=== PATIENT | male | born 1955 | race Caucasian/White ===

== ENCOUNTER 2019-09-02 11:16 | Inpatient (IN) | payer OTHER ==
[2019-09-02 13:01] VITALS: BMI 26.4
--- NOTE | 2019-09-02 14:30 | HP ---
Screened but not Admitted - Documentation of Visit Screened but not Admitted: Yes Level of Care Recommended at this Time: ER Evaluation/Care Additional Information/Explanation: this 63 years old male with alcohol rependence,seizure,. head injury and face injury 2 days ago on . ecchymosis with swelling of left face,nose,. ecchymosis of right upper arm. bp 143/86,p83,r16,t98.0. marcelino 0.000. history of asthma. impression chonic alcoholism. seizure. head injury. facial and nose injury r/o fx. treatment to er at [facility] for evaluation and medically clearance. endorsed to Dr Girish Song. [facility].
--- NOTE | 2019-09-02 22:06 | HP ---
CIWA Score Nausea/Vomitin Muscle Tremors: 3 Anxiety: 2 Agitation: 2 Paroxysmal Sweats: 2 Orientation: 0-Oriented Tacttile Disturbances: 2-Mild Itch/Numbness/Burn Auditory Disturbances: 2-Mild Harshness/Frighten Visual Disturbances: 3-Moderate Sensitivity Headache: 2-Mild CIWA-Ar Total Score: 20 - Admission Criteria OASAS Guidelines: Admission for Medically Managed Detox: Requires at least one of the followin. CIWA greater than 12 2. Seizures within the past 24 hours 3. Delirium tremens within the past 24 hours 4. Hallucinations within the past 24 hours 5. Acute intervention needed for co occurring medical disorder 6. Acute intervention needed for co occurring psychiatric disorder 7. Severe withdrawal that cannot be handled at a lower level of care (continued vomiting, continued diarrhea, abnormal vital signs) requiring intravenous medication and/or fluids 8. Admission ROS BHS - HPI Chief Complaint: DEPENDENT ON ETOH ONLY Allergies/Adverse Reactions: Allergies Allergy/AdvReac Type Severity Reaction Status Date / Time No Known Allergies Allergy Verified 09/02/19 15:25 History of Present Illness: THE PT. WAS SENT FROM THE ER FOR ADMISSION TO THE DETOX UNIT HE WAS MEDICALLY CLEARED BY THE ER-MD Exam Limitations: No Limitations - Ebola screening Have you traveled outside of the country in the last 21 days: No Have you had contact with anyone from an Ebola affected area: No Have you been sick,other than usual withdrawal symptoms: No Do you have a fever: No - Review of Systems Constitutional: See HPI, Malaise, Weakness EENT: reports: See HPI Respiratory: reports: See HPI, SOB with Exertion, Wheezing Cardiac: reports: See HPI, Syncope GI: reports: See HPI, Nausea, Abdominal cramping : reports: See HPI Musculoskeletal: reports: See HPI, Joint Pain, Muscle Pain, Muscle Weakness, Neck Pain, Joint Stiffness Integumentary: reports: See HPI, Bruising, Flushing, Lesions, Sweating Neuro: reports: See HPI, Headache, Tremors, Weakness Endocrine: reports: See HPI Hematology: reports: See HPI Psychiatric: reports: Judgement Intact, Orientated x3, Anxious, Depressed Patient History - Patient Medical History Hx Asthma: Yes Hx Seizures: Yes (WITHDRAWAL SEIZURES - LAST EPISODE 2 DAYS AGO) Hx Human Immunodeficiency Virus (HIV): No Hx Hepatitis C: No Hx Depression: No Hx Suicide Attempt: No Hx Bipolar Disorder: No Other Medical History: H/O FELL DOWN 2 DAYS AGO AND SUSTAINED INJURIES TO THE FACE W/U WAS NEGATIV - Patient Surgical History Past Surgical History: Yes Hx Orthopedic Surgery: Yes (ON CERVICAL SPINE - SEVERAL YRS. AGO) - Smoking Cessation Smoking history: Current every day smoker Have you smoked in the past 12 months: Yes Aproximately how many cigarettes per day: 4 Hx Chewing Tobacco Use: No Initiated information on smoking cessation: Yes 'Breaking Loose' booklet given: 09/02/19 - Substance & Tx. History Hx Alcohol Use: Yes Hx Substance Use: No Substance Use Type: Alcohol Hx Substance Use Treatment: Yes - Substances abused Alcohol Substance route: Oral Frequency: Daily Amount used: 1 pint of vodka Age of first use: 17 Date of last use: 09/01/19 Admission Physical Exam S - Vital Signs Vital Signs: Vital Signs - 24 hr 09/02/19 12:54 Temperature 98.0 F Pulse Rate 83 Respiratory 16 Rate Blood Pressure 143/86 - Physical General Appearance: Yes: No Apparent Distress, Nourished, Appropriately Dressed , Tremorous, Sweating, Anxious HEENTM: Yes: Hearing grossly Normal, Normocephalic, Normal Voice, MELANIE, Pharynx Normal Respiratory: Yes: Chest Non-Tender, No Respiratory Distress, No Accessory Muscle Use, Wheezing Neck: Yes: No masses,lesions,Nodules, Supple, Trachea in good position Breast: Yes: Breast Exam Deferred, Axillae without masses Cardiology: Yes: Regular Rhythm, Regular Rate, S1, S2 Abdominal: Yes: Normal Bowel Sounds, Non Tender, Soft, Protuberent Back: Yes: Normal Inspection, Decreased Range of Motion Musculoskeletal: Yes: Gait Steady, Joint Stiffness, Muscle Pain, Muscle weakness Extremities: Yes: Normal Capillary Refill, Tremors Neurological: Yes: 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 NML intact, Fully Oriented, Alert, Motor Strength 5/5, Normal Response, Depressed Affect Integumentary: Yes: Normal Color, Warm, Moist Lymphatic: Yes: Within Normal Limits - Diagnostic (1) EtOH dependence Current Visit: Yes Status: Acute (2) Asthma Current Visit: Yes Status: Chronic Qualifiers: Asthma severity: unspecified severity Asthma complication type: uncomplicated (3) Fall Current Visit: No Status: Resolved (4) Right shoulder pain Current Visit: No Status: Acute Qualifiers: Chronicity: acute Qualified Code(s): M25.511 - Pain in right shoulder Cleared for Admission [facility] - Detox or Rehab [facility] Level of Care: Medically Supervised Detox Regimen/Protocol: Librium Breathalyzer - Breathalyzer Breathalyzer: 0 Urine Drug Screen - Test Device Lot number: [id number] Expiration date: 05/29/20 - Control Is test valid?: Yes - Results Drug screen NEGATIVE: No Urine drug screen results: BZO-Benzodiazepines Inpatient Rehab Admission - Rehab Decision to Admit Inpatient rehab admission?: No
[2019-09-02] MEDS ORDERED: MAGNESIUM HYDROX 2400MG/30ML ORAL SUSPENSION 30 ML CUP PO PRN (22:12)
[2019-09-02] MEDS ORDERED: IBUPROFEN 400 MG TABLET (FP) PO PRN (22:12)
[2019-09-02] MEDS ORDERED: MAGNESIUM CITRATE 300 ML BOTTLE PO PRN (22:12)
[2019-09-02] MEDS ORDERED: METHOCARBAMOL 500 MG TABLET PO PRN (22:12)
[2019-09-02] MEDS ORDERED: MELATONIN 5 MG TABLETS PO PRN (22:12)
[2019-09-02] MEDS ORDERED: MENTHOL/PHENOL 1 EACH UD MM PRN (22:12)
[2019-09-02] MEDS ORDERED: MAG HYDROX/AL HYDROX/SIMETH 30 ML UNIT-DOSE CUP PO PRN (22:12)
[2019-09-02] MEDS ORDERED: NICOTINE POLACRILEX 2 MG GUM BUC PRN (22:12)
[2019-09-02] MEDS ORDERED: ACETAMINOPHEN 325 MG TABLET (FP) PO PRN ×2 (22:12)
[2019-09-02] MEDS ORDERED: BISMUTH SUBSALICYLATE 524 MG/30 ML UD PO PRN (22:12)
[2019-09-02] MEDS ORDERED: hydrOXYzine PAMOATE 25 MG CAPSULE (FP) PO PRN (22:12)
[2019-09-02] MEDS ORDERED: chlordiazePOXIDE HCL 25 MG CAPSULE PO PRN (22:14)
[2019-09-02] MEDS ORDERED: chlordiazePOXIDE HCL 25 MG CAPSULE PO ONE (22:14)
[2019-09-02] MEDS ORDERED: ALBUTEROL SO4 8 GM HFA INHALER IH PRN (22:15)
[2019-09-02] MEDS: chlordiazePOXIDE HCL 25 MG CAPSULE PO SCH (23:45)
[2019-09-02] MEDS: BACITRACIN 15 GM TUBE TOPICAL OINTMENT TP SCH (23:55)
[2019-09-03] MEDS: chlordiazePOXIDE HCL 25 MG CAPSULE PO SCH ×4 (06:27→23:33)
[2019-09-03] MEDS: BACITRACIN 15 GM TUBE TOPICAL OINTMENT TP SCH ×3 (06:27→23:33)
[2019-09-03] MEDS: PRENATAL VITAMINS W/ FOLIC ACID TABLET (FP) PO SCH (10:24)
[2019-09-03 13:36] LABS: HEMATOCRIT 41.8 % (35.4-49); HEMOGLOBIN 13.8 GM/dL (11.7-16.9); MCH 32.8 pg (25.7-33.7); MEAN CELL VOLUME 99.4 fl (80-96); MEAN PLT VOLUME 8.1 fl (7.5-11.1); PLATELET COUNT 331 K/MM3 (134-434); WHITE BLOOD COUNT 4.9 K/mm3 (4.0-10.0)
[2019-09-03 14:02] LABS: ALBUMIN 3.4 g/dl (3.4-5.0); BLOOD UREA NITROGEN 10.1 mg/dL (7-18); CALCIUM 8.9 mg/dL (8.5-10.1); CREATININE 0.8 mg/dL (0.55-1.3); POTASSIUM 4.2 mmol/L (3.5-5.1); TOT PROT 6.1 g/dl (6.4-8.2)
--- NOTE | 2019-09-03 14:55 | PN ---
S CIWA - CIWA Score Nausea/Vomitin-Mild Nausea/No Vomiting Muscle Tremors: 4-Moderate,w/Arms Extend Anxiety: 3 Agitation: 3 Paroxysmal Sweats: 3 Orientation: 0-Oriented Tacttile Disturbances: 0-None Auditory Disturbances: 0-None Visual Disturbances: 0-None Headache: 0-None Present CIWA-Ar Total Score: 14 S Progress Note (SOAP) Subjective: Feels ok, medication working ok Objective: 09/03/19 14:51 Last Vital Signs Temp Pulse Resp BP Pulse Ox 97.9 F 71 18 135/90 09/03/19 13:57 09/03/19 13:57 09/03/19 13:57 09/03/19 13:57 Elevated b/p: denies htn Laboratory Tests 09/03/19 09/03/19 07:30 07:30 WBC 4.9 RBC 4.20 Hgb 13.8 Hct 41.8 MCV 99.4 H MCH 32.8 MCHC 33.0 RDW 15.0 Plt Count 331 MPV 8.1 Sodium 143 Potassium 4.2 Chloride 107 Carbon Dioxide 30 Anion Gap 6 L BUN 10.1 Creatinine 0.8 Est GFR (CKD-EPI)AfAm 110.19 Est GFR (CKD-EPI)NonAf 95.07 Random Glucose 124 H Calcium 8.9 Total Bilirubin 1.0 AST 28 ALT 56 Alkaline Phosphatase 145 H Total Protein 6.1 L Albumin 3.4 Labs reviewed: serum glucose 124 (high), alk phos 145 (high) Assessment: 09/03/19 14:53 Withdrawal sxs Noted with HTN, hyperglycemia and elevated alkaline phosphatase Plan: Continue detox Encouraged PO water intake Elevated b/p: denies HTN, most likely withdrawal related, start clonidine prn Hyperglycemia: denies dm, send fasting glucose and A1c Elevated alk phos: repeat serum alk phos
[2019-09-03] MEDS ORDERED: cloNIDine HCL 0.1 MG TABLET PO PRN (14:57)
[2019-09-03] MEDS: THIAMINE HCL 100 MG TABLET (FP) PO SCH (23:34)
[2019-09-04] MEDS: chlordiazePOXIDE HCL 25 MG CAPSULE PO SCH ×4 (06:23→22:18)
[2019-09-04] MEDS: BACITRACIN 15 GM TUBE TOPICAL OINTMENT TP SCH ×3 (06:24→22:53)
--- NOTE | 2019-09-04 10:36 | PN ---
S CIWA - CIWA Score Nausea/Vomitin Muscle Tremors: 2 Anxiety: 2 Agitation: 2 Paroxysmal Sweats: 1-Minimal Palms Moist Orientation: 0-Oriented Tacttile Disturbances: 1-Very Mild Itch/Numbness Auditory Disturbances: 0-None Visual Disturbances: 0-None Headache: 1-Very Mild CIWA-Ar Total Score: 11 S Progress Note (SOAP) Subjective: alert,irritable,anxious,interrupted sleep,tremor,pain in the right shoulder with limitation on abduction,escchymosis of right upper arm Objective: 09/04/19 10:35 Vital Signs Temperature 97.7 F 09/04/19 09:17 Pulse Rate 90 09/04/19 09:17 Respiratory Rate 18 09/04/19 09:17 Blood Pressure 139/88 09/04/19 09:17 O2 Sat by Pulse Oximetry (%) Laboratory Last Values WBC 4.9 K/mm3 (4.0-10.0) 09/03/19 07:30 RBC 4.20 M/mm3 (4.00-5.60) 09/03/19 07:30 Hgb 13.8 GM/dL (11.7-16.9) 09/03/19 07:30 Hct 41.8 % (35.4-49) 09/03/19 07:30 MCV 99.4 fl (80-96) H 09/03/19 07:30 MCH 32.8 pg (25.7-33.7) 09/03/19 07:30 MCHC 33.0 g/dl (32.0-35.9) 09/03/19 07:30 RDW 15.0 % (11.9-15.9) 09/03/19 07:30 Plt Count 331 K/MM3 (134-434) 09/03/19 07:30 MPV 8.1 fl (7.5-11.1) 09/03/19 07:30 Sodium 143 mmol/L (136-145) 09/03/19 07:30 Potassium 4.2 mmol/L (3.5-5.1) 09/03/19 07:30 Chloride 107 mmol/L (98-107) 09/03/19 07:30 Carbon Dioxide 30 mmol/L (21-32) 09/03/19 07:30 Anion Gap 6 MMOL/L (8-16) L 09/03/19 07:30 BUN 10.1 mg/dL (7-18) 09/03/19 07:30 Creatinine 0.8 mg/dL (0.55-1.3) 09/03/19 07:30 Est GFR (CKD-EPI)AfAm 110.19 09/03/19 07:30 Est GFR (CKD-EPI)NonAf 95.07 09/03/19 07:30 Random Glucose 124 mg/dL (74-106) H 09/03/19 07:30 Calcium 8.9 mg/dL (8.5-10.1) 09/03/19 07:30 Total Bilirubin 1.0 mg/dL (0.2-1) 09/03/19 07:30 AST 28 U/L (15-37) 09/03/19 07:30 ALT 56 U/L (13-61) 09/03/19 07:30 Alkaline Phosphatase 145 U/L (45-117) H 09/03/19 07:30 Total Protein 6.1 g/dl (6.4-8.2) L 09/03/19 07:30 Albumin 3.4 g/dl (3.4-5.0) 09/03/19 07:30 RPR Titer Nonreactive (NONREACTIVE) 09/03/19 07:30 Assessment: 09/04/19 10:36 withdrawal symptom Plan: continue detox librium regimen,porgressive abduction exercise of right shoulder, repeat cmp,fasting glucose in am,to see own medical provider and possible orthopedic evaluation after discharge ,patient understood
[2019-09-04] MEDS: PRENATAL VITAMINS W/ FOLIC ACID TABLET (FP) PO SCH (11:12)
[2019-09-04] MEDS: THIAMINE HCL 100 MG TABLET (FP) PO SCH (22:19)
[2019-09-05] MEDS ORDERED: chlordiazePOXIDE HCL 10 MG CAPSULE PO PRN
[2019-09-05] MEDS: chlordiazePOXIDE HCL 10 MG CAPSULE PO SCH ×4 (06:22→22:15)
[2019-09-05] MEDS: BACITRACIN 15 GM TUBE TOPICAL OINTMENT TP SCH ×3 (07:08→22:15)
--- NOTE | 2019-09-05 08:45 | PN ---
S CIWA - CIWA Score Nausea/Vomitin-Mild Nausea/No Vomiting Muscle Tremors: 2 Anxiety: 1-Mildly Anxious Agitation: 0-Normal Activity Paroxysmal Sweats: No Perspiration Orientation: 0-Oriented Tacttile Disturbances: 0-None Auditory Disturbances: 0-None Visual Disturbances: 0-None Headache: 1-Very Mild CIWA-Ar Total Score: 5 BHS Progress Note (SOAP) Subjective: pt without complaints- says he is doing well- going back to snf at discharge - O: Vital Signs - 24 hr 09/04/19 09/04/19 09/04/19 09:17 17:17 21:10 Temperature 97.7 F 97.5 F L 97.9 F Pulse Rate 90 76 79 Respiratory 18 18 18 Rate Blood Pressure 139/88 145/85 142/67 09/05/19 09/05/19 09/05/19 00:30 03:30 06:19 Temperature 97 F L Pulse Rate 66 Respiratory 18 18 18 Rate Blood Pressure 139/87 Laboratory Tests 09/03/19 09/03/19 09/03/19 07:30 07:30 07:30 WBC 4.9 RBC 4.20 Hgb 13.8 Hct 41.8 MCV 99.4 H MCH 32.8 MCHC 33.0 RDW 15.0 Plt Count 331 MPV 8.1 Sodium 143 Potassium 4.2 Chloride 107 Carbon Dioxide 30 Anion Gap 6 L BUN 10.1 Creatinine 0.8 Est GFR (CKD-EPI)AfAm 110.19 Est GFR (CKD-EPI)NonAf 95.07 Random Glucose 124 H Calcium 8.9 Total Bilirubin 1.0 AST 28 ALT 56 Alkaline Phosphatase 145 H Total Protein 6.1 L Albumin 3.4 RPR Titer Nonreactive a/p: AUD- continue detox, d/c 09/07. Pt to discuss with counselor re snf vs rehab d/c planning
[2019-09-05] MEDS: PRENATAL VITAMINS W/ FOLIC ACID TABLET (FP) PO SCH (10:09)
[2019-09-05 11:10] LABS: ALBUMIN 3.1 g/dl (3.4-5.0); BILIRUBIN,TOTAL 0.5 mg/dL (0.2-1); BLOOD UREA NITROGEN 9.3 mg/dL (7-18); CALCIUM 8.8 mg/dL (8.5-10.1); CREATININE 0.7 mg/dL (0.55-1.3); POTASSIUM 4.6 mmol/L (3.5-5.1); TOT PROT 5.7 g/dl (6.4-8.2)
[2019-09-05] MEDS: THIAMINE HCL 100 MG TABLET (FP) PO SCH (22:15)
[2019-09-06] MEDS: chlordiazePOXIDE HCL 10 MG CAPSULE PO SCH ×2 (05:25→17:32)
[2019-09-06] MEDS: BACITRACIN 15 GM TUBE TOPICAL OINTMENT TP SCH ×3 (05:43→22:08)
--- NOTE | 2019-09-06 10:21 | PN ---
S CIWA - CIWA Score Nausea/Vomitin-Mild Nausea/No Vomiting Muscle Tremors: 1-None Visible, but [place] Anxiety: 1-Mildly Anxious Agitation: 1-Slight > Activity Paroxysmal Sweats: No Perspiration Orientation: 0-Oriented Tacttile Disturbances: 0-None Auditory Disturbances: 0-None Visual Disturbances: 1-Very Mild Sensitivity Headache: 1-Very Mild CIWA-Ar Total Score: 6 BHS Progress Note (SOAP) Subjective: alert,irritable,anxious,interrupted sleep,pain in the body and right shoulder Objective: 09/06/19 10:20 Vital Signs Temperature 97.5 F L 09/06/19 09:11 Pulse Rate 77 09/06/19 09:11 Respiratory Rate 18 09/06/19 09:11 Blood Pressure 141/86 09/06/19 09:11 O2 Sat by Pulse Oximetry (%) Assessment: 09/06/19 10:20 withdrawal symptom Plan: continue detox librium regimen,discharge in am
[2019-09-06] MEDS: PRENATAL VITAMINS W/ FOLIC ACID TABLET (FP) PO SCH (10:23)
[2019-09-06] MEDS: THIAMINE HCL 100 MG TABLET (FP) PO SCH (22:07)
[2019-09-07] MEDS ORDERED: chlordiazePOXIDE HCL 10 MG CAPSULE PO ONE (05:00)
[2019-09-07] MEDS: BACITRACIN 15 GM TUBE TOPICAL OINTMENT TP SCH (06:01)
--- NOTE | 2019-09-07 08:30 | DS ---
[facility] Detox Discharge Summary Admission Date: 09/02/19 Discharge Date: 09/07/19 - History Present History: Alcohol Dependence - Physical Exam Results Vital Signs: Vital Signs Temperature 97.5 F L 09/07/19 05:00 Pulse Rate 66 09/07/19 05:00 Respiratory Rate 18 09/07/19 05:00 Blood Pressure 118/67 09/07/19 05:00 O2 Sat by Pulse Oximetry (%) Pertinent Admission Physical Exam Findings: Vital Signs Temperature 97.5 F L 09/07/19 05:00 Pulse Rate 66 09/07/19 05:00 Respiratory Rate 18 09/07/19 05:00 Blood Pressure 118/67 09/07/19 05:00 O2 Sat by Pulse Oximetry (%) Laboratory Tests 09/03/19 09/03/19 09/03/19 07:30 07:30 07:30 WBC 4.9 RBC 4.20 Hgb 13.8 Hct 41.8 MCV 99.4 H MCH 32.8 MCHC 33.0 RDW 15.0 Plt Count 331 MPV 8.1 Sodium 143 Potassium 4.2 Chloride 107 Carbon Dioxide 30 Anion Gap 6 L BUN 10.1 Creatinine 0.8 Est GFR (CKD-EPI)AfAm 110.19 Est GFR (CKD-EPI)NonAf 95.07 Random Glucose 124 H Fasting Glucose Calcium 8.9 Total Bilirubin 1.0 AST 28 ALT 56 Alkaline Phosphatase 145 H Total Protein 6.1 L Albumin 3.4 RPR Titer Nonreactive 09/05/19 08:00 WBC RBC Hgb Hct MCV MCH MCHC RDW Plt Count MPV Sodium 142 Potassium 4.6 Chloride 108 H Carbon Dioxide 29 Anion Gap 5 L BUN 9.3 Creatinine 0.7 Est GFR (CKD-EPI)AfAm 116.40 Est GFR (CKD-EPI)NonAf 100.43 Random Glucose 99 Fasting Glucose 99 Calcium 8.8 Total Bilirubin 0.5 AST 40 H ALT 67 H Alkaline Phosphatase 141 H Total Protein 5.7 L Albumin 3.1 L RPR Titer aaox3 ambulating no acute distress - Treatment Hospital Course: Detox Protocol Followed, Detoxed Safely, Responded well, Discharged Condition Good, Rehab Referral Accepted Patient has Accepted a Rehab Referral to: pt declined rehab; referral provided - Medication Discharge Medications: Ambulatory Orders Albuterol Sulfate Inhaler - [Ventolin Hfa Inhaler -] 2 inh PO Q6H 09/02/19 - Diagnosis (1) EtOH dependence Current Visit: Yes Status: Chronic Qualifiers: Substance use status: uncomplicated Qualified Code(s): F10.20 - Alcohol dependence, uncomplicated (2) Asthma Current Visit: Yes Status: Chronic Qualifiers: Asthma severity: unspecified severity Asthma complication type: uncomplicated (3) Right shoulder pain Current Visit: No Status: Acute Qualifiers: Chronicity: acute Qualified Code(s): M25.511 - Pain in right shoulder - AMA Did Patient Leave Against Medical Advice: No
[2019-09-07 09:16] VITALS: BP 133/77; PULSE 84; TEMP 97.9
[2019-09-07] MEDS: PRENATAL VITAMINS W/ FOLIC ACID TABLET (FP) PO SCH (10:22)
== END 2019-09-07 11:05 | disposition other institution (70) | DRG 775 ==
LOC: YASAS 11:16 → Y6N 22:42
PROVIDERS: ADMIT Allergy & Immunology; ATTEND Allergy & Immunology
PROC: HZ2ZZZZ Detoxification Services for Substance Abuse Treatment (ICD-10-PCS; principal; 2019-09-02)
DX: F10.230 Alcohol dependence with withdrawal, uncomplicated (principal); F17.210 Nicotine dependence, cigarettes, uncomplicated; G40.509 Epileptic seizures related to external causes, not intractable, without status epilepticus; J45.909 Unspecified asthma, uncomplicated; R73.9 Hyperglycemia, unspecified; R74.8 Abnormal levels of other serum enzymes; R03.0 Elevated blood-pressure reading, without diagnosis of hypertension; M25.511 Pain in right shoulder; S09.93XA Unspecified injury of face, initial encounter; W19.XXXA Unspecified fall, initial encounter; Y93.89 Activity, other specified; Y92.89 Other specified places as the place of occurrence of the external cause; Y99.8 Other external cause status
CPT/HCPCS: 36415; 80053; 82947; 85027; 86593

== ENCOUNTER 2019-09-02 15:09 | Emergency (ER) | payer OTHER ==
[2019-09-02 15:25] VITALS: TEMP 98.1; BMI 29.0
--- NOTE | 2019-09-02 17:41 | PDOC ---
History of Present Illness - General Chief Complaint: Injury Stated Complaint: FALL Time Seen by Provider: 09/02/19 16:44 History Source: Patient Exam Limitations: No Limitations - History of Present Illness Initial Comments: 63 y/o M, pmh of alcohol intoxication, presents to the ED from [facility] s/p fall. As per pt he had fallen 3 days ago while intoxicated in [place] and was checked out at [facility] in [place]. He was then sent to a detox facility in [place]() who then sent him to [facility] for detox. He also reports a second fall yesterday, during which he sustained some superficial abrasions and injuries to his body. He currently c/o of right rib pain and right shoulder pain with lack of ROM. Denies f/c/n/v/d/sob, abdominal pain. 09/02/19 17:42 09/02/19 17:49 Associated Symptoms: reports: denies symptoms, chest pain (right lateral chest ) . denies: cough, diaphoresis, headaches, nausea/vomiting, shortness of breath Past History - Travel Traveled outside of the country in the last 30 days: No Close contact w/someone who was outside of country & ill: No - Past Medical History Allergies/Adverse Reactions: Allergies Allergy/AdvReac Type Severity Reaction Status Date / Time No Known Allergies Allergy Verified 09/02/19 15:25 Home Medications: Ambulatory Orders Albuterol Sulfate Inhaler - [Ventolin Hfa Inhaler -] 2 inh PO Q6H 09/02/19 COPD: No - Immunization History Immunization Up to Date: No - Psycho Social/Smoking Cessation Hx Smoking History: Current every day smoker Number of Cigarettes Smoked Daily: 4 Information on smoking cessation initiated: No Hx Alcohol Use: Yes Drug/Substance Use Hx: No Review of Systems - Review of Systems Able to Perform ROS?: Yes Is the patient limited French proficient: No Constitutional: Yes: Symptoms Reported, Weight Stable. No: Chills, Diaphoresis , Fever HEENTM: Yes: Symptoms Reported. No: Eye Pain, Blurred Vision Respiratory: Yes: Symptoms reported. No: Cough, Shortness of Breath, Wheezing, Productive cough Cardiac (ROS): Yes: Symptoms Reported, Chest Pain (right lateral chest pain). No: Chest Tightness ABD/GI: No: Abdominal Distended, Diarrhea, Nausea, Vomiting Neurological: Yes: Symptoms reported. No: Headache, Numbness *Physical Exam - Vital Signs Last Vital Signs Temp Pulse Resp BP Pulse Ox 98.1 F 78 16 148/60 96 09/02/19 15:20 09/02/19 15:20 09/02/19 15:20 09/02/19 15:20 09/02/19 15:20 - Physical Exam General Appearance: Yes: Nourished, Appropriately Dressed HEENT: positive: EOMI, MELANIE, Normal ENT Inspection, Pharynx Normal, Orbits ( left facial abrasion and swelling and ecchymosis and nose erythema) Neck: positive: Trachea midline, Normal Thyroid, Supple Respiratory/Chest: positive: Chest Tender (right rib pain and bruising ), Normal Breath Sounds, Crackles (mild crackles on the right lower lobe) Cardiovascular: positive: Regular Rhythm, Regular Rate, S1, S2. negative: Murmur, Gallop/S3, Gallop/S4 Vascular Pulses: Dorsalis-Pedis (R): 2+, Doralis-Pedis (L): 2+ Gastrointestinal/Abdominal: positive: Normal Bowel Sounds, Soft. 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 As per pt he had fallen 3 days ago while intoxicated in [place] and was checked out at [facility] in [place]. #s/p Fall 2/2 to intoxication r/o pneumothorax from rib fx on the right side wounds present on the left side of the face and nose- superficial abrasions Right rib pain and ecchymosis- Bedside US shows likely evidence of 4th rib fx Right shoulder and arm ecchymotic and no ROM CT chest and CT a/p CT head, face and c-spine cmp Xrays- humerus, elbow, shoulder 09/02/19 17:57 09/02/19 18:01 09/02/19 19:22 Discharge - Discharge Information Problems reviewed: Yes Clinical Impression/Diagnosis: Fall Condition: Improved - Follow up/Referral - Patient Discharge Instructions - Post Discharge Activity
[2019-09-02 17:45] LABS: BASO % 1.2 % (0-2.0); EOS % 4.2 % (0-4.5); HEMATOCRIT 39.9 % (35.4-49); HEMOGLOBIN 13.5 GM/dL (11.7-16.9); LYMPH % 20.9 % (8-40); MCH 33.1 pg (25.7-33.7); MCHC 33.7 g/dl (32.0-35.9); MEAN PLT VOLUME 8.2 fl (7.5-11.1); MONO % 13.3 % (3.8-10.2); NEUT % 60.4 % (42.8-82.8); PLATELET COUNT 321 K/MM3 (134-434); RBC 4.07 M/mm3 (4.00-5.60); RDW 14.6 % (11.9-15.9); WHITE BLOOD COUNT 5.2 K/mm3 (4.0-10.0)
[2019-09-02 18:00] LABS: INR 0.86 (0.83-1.09); PROTHROMBIN TIME (PATIENT) 10.1 SEC (9.7-13.0)
[2019-09-02 18:05] LABS: ALBUMIN 3.5 g/dl (3.4-5.0); BLOOD UREA NITROGEN 12.4 mg/dL (7-18); CREATININE 0.7 mg/dL (0.55-1.3); POTASSIUM 4.4 mmol/L (3.5-5.1); TOT PROT 6.2 g/dl (6.4-8.2)
[2019-09-02] MEDS ORDERED: ACETAMINOPHEN 1000 MG/100 ML VIAL (NON FORMULARY) IVPB ONE (18:28)
[2019-09-02] MEDS ORDERED: ACETAMINOPHEN INJECTION 100 ML IVPB ONE (19:03)
--- NOTE | 2019-09-02 19:22 | PDOC ---
Documentation entered by Marco Antonio Green SCRIBE, acting as scribe for Felipe Shah MD. Felipe Shah MD: This documentation has been prepared by the Peter foy Daniel, SCRIBE, under my direction and personally reviewed by me in its entirety. I confirm that the documentation accurately reflects all work, treatment, procedures, and medical decision making performed by me. Attending Attestation - Resident Resident Name: Abdiaziz Amador - ED Attending Attestation I have performed the following: I have examined & evaluated the patient, The case was reviewed & discussed with the resident, I agree w/resident's findings & plan, Exceptions are as noted - HPI HPI: 09/02/19 17:08 The patient is a 63 year old male with a past medical history of alcohol abuse and seizures here today from [facility] for evaluation of falls. The patient reports that he presented to [facility] for alcohol detox and was sent to the ER due to his falls. The patient reports that he fell yesterday and the day before and notes diffuse bruising on his body, right upper quadrant abdominal pain, and right upper extremity pain. Patient denies headache, lightheadedness. Denies fever, chills. Denies shortness of breath. Denies nausea, vomiting, diarrhea. Allergies: NKA - Physicial Exam PE: 09/02/19 19:22 Vitals: Triage Vital signs reviewed General Appearance: No acute distress, well nourished well developed, Head: Facial abrasions to the left side of the face and nose Eyes: Pupils equal reactive round, extraocular movement intact Throat: Posterior oropharynx without erythema, mucous membranes moist, Neck: Supple; no Nucal rigidity Chest Wall: Ecchymosis to right chest wall right upper extremity Cardiac: Regular rate and rhythym, no murmurs, no rubs, no gallops, Lungs: Clear to auscultation bilateral, good air movement bilaterally, Abdomen: Soft, non distended, normal bowel sounds, right upper quadrant tenderness to palpation Extremities: Full range of motion to all extremities, no cyanosis, clubbing, or edema Skin: Warm and dry, no rashes or lesions, no rash, no petechiae Neuro: strength intact to all extremities, sensation intact to all extremities, gait normal Psych: Normal mood, normal affect 09/02/19 21:47 - Medical Decision Making 09/02/19 21:49 Patient presents with falls secondary to alcohol abuse sent from [facility] for evaluation CT head cervical spine chest and abdomen demonstrates no acute pathology abdominal exam is benign repeat abdominal examination demonstrates no rebound no guarding no tenderness to palpation Patient medically clear at this point for transfer back to [facility]. Please return patient to the emergency department for any severe worsening symptoms or for any concerns.
[2019-09-02 19:30] VITALS: BP 151/67; PULSE 66
--- NOTE | 2019-09-02 19:35 | PDOC ---
*Physical Exam - Vital Signs Last Vital Signs Temp Pulse Resp BP Pulse Ox 98.1 F 66 18 151/67 97 09/02/19 15:20 09/02/19 19:29 09/02/19 19:29 09/02/19 19:29 09/02/19 19:16 ED Treatment Course - LABORATORY CBC & Chemistry Diagram: 09/02/19 17:35 09/02/19 17:00 - ADDITIONAL ORDERS Additional order review: Laboratory Results 09/02/19 09/02/19 17:35 17:00 PT with INR 10.10 INR 0.86 Sodium 141 Potassium 4.4 Chloride 106 Carbon Dioxide 30 Anion Gap 4 L BUN 12.4 Creatinine 0.7 Est GFR (CKD-EPI)AfAm 116.40 Est GFR (CKD-EPI)NonAf 100.43 Random Glucose 132 H Calcium 9.0 Total Bilirubin 1.0 AST 34 ALT 62 H Alkaline Phosphatase 136 H Total Protein 6.2 L Albumin 3.5 09/02/19 17:35 RBC 4.07 MCV 98.0 H MCHC 33.7 RDW 14.6 MPV 8.2 Neutrophils % 60.4 Lymphocytes % 20.9 Monocytes % 13.3 H Eosinophils % 4.2 Basophils % 1.2 - Medications Given in the ED: ED Medications Discontinued Medications Generic Name Dose Route Start Last Admin Trade Name Blanca PRN Reason Stop Dose Admin Acetaminophen 1,000 mg 09/02/19 18:28 09/02/19 19:17 Ofirmev Injection - IVPB 09/02/19 18:29 1,000 mg ONCE ONE Administration Medical Decision Making - Medical Decision Making 09/02/19 19:35 Received sign out from Dr Amador. 63 y/o M, hx of alcohol intoxication and withdrawal seizures, presents to the ED from [facility] s/p multiple falls (last yesterday) while intoxicated with multiple ecchymoses, pain to R rib and shoulder, and limited ROM of shoulder. Hemodynamically stable, afebrile. Pt seen and assessed at bedside. Pain resolved. Can now move RUE almost fully. Just a little lightheaded but states hasn't eaten anything today. Pt denies abdominal pain but upon repeat physical exam, slight tenderness to deep palpation in LUQ. Pt states probably due to being hungry. Chest CT negative, low concern for emergent GI pathology due to lack of F/C/N/V/D/C and mild tenderness, but will r/o with CTAP. Denies withdrawal sx at this time, including tremors, nausea, vomiting, anxiety, diaphoresis. 09/02/19 19:39 CT reads: IMPRESSION: 1. No evidence for acute traumatic injury of the chest or bony thorax. 2. Mild asymmetric enlargement of the right shoulder musculature with ill- defined fluid collection, possibly within the subcoracoid bursa. No acute osseous abnormality of the right shoulder, though incompletely evaluated. Please correlate with patient's history to assess her level of acuity. IMPRESSION: No evidence for acute intracranial pathology IMPRESSION: Remote posttraumatic changes of C2 without evidence for acute osseous abnormality. 09/02/19 20:04 XRs reviewed. No acute pathology. Labs reviewed. No concerning findings. 09/02/19 20:30 EKG reviewed: NSR, 63bpm, normal intervals, normal axis, no TWIs, no ST elevations or depressions 09/02/19 20:40 Spoke with [facility] - pt still in processing, can send back and will be admitted but he is not admitted yet. 09/02/19 20:59 CTAP reviewed. IMPRESSION: 1. Limited exam due to lack of IV contrast in the setting of trauma. 2. No gross evidence for acute traumatic injury of the abdomen and pelvis. 3. Eventration of the left hemidiaphragm. 4. Other incidental and senescent findings, as above. Pt feeling good, just hungry. Pt able to walk. Safe for discharge back to [facility] for detox. Will dc home with PCP and ortho f/u. Return precautions given. Pt understands all dc instructions and all questions were answered. Discharge - Discharge Information Problems reviewed: Yes Clinical Impression/Diagnosis: Fall, Right shoulder pain Condition: Improved Disposition: HOME - Admission No - Follow up/Referral Referrals: Bassam Leach DO [Staff Physician] - - Patient Discharge Instructions Patient Printed Discharge Instructions: DI for Drug or Alcohol Withdrawal Additional Instructions: You have been seen in the Emergency Department for your pains after your fall. You had blood work, an EKG, CT scans of your head and neck and chest and abdomen , and X-Rays of your right arm and shoulder. There is no indication of an emergent condition and you are safe to go back to [facility] to continue your detox. Your pains are most likely due to bruising and soft tissue injuries. There is some fluid seen in the shoulder which may indicate bursitis or another condition. We have given you a referral to an Orthopedic Surgeon Dr Leach for further evaluation. Give his office a call to set up an appointment for this week. If you experience pain, you can take Tylenol or Ibuprofen as directed on the medication bottle, but do not exceed 3g of Ibuprofen or 4g of Tylenol a day. Rest and protect the injured areas. Stop, change, or take a break from any activity that may be causing your pain. Do continue with normal activity as much as possible though to prevent stiffness and increased pain. Cold will reduce pain and swelling. Apply an ice or cold pack right away to prevent or minimize swelling. Apply the ice or cold pack for 10 to 20 minutes, 3 or more times a day. After 48 to 72 hours, if swelling is gone, apply heat to the area that hurts. Do not apply ice or heat directly to the skin. Place a towel over the cold or heat pack before applying it to the skin. Return to the ED immediately if you experience worsening pain not controlled by over the counter medications, numbness or tingling, confusion, fever, or any other new or worsening symptom. - Post Discharge Activity
--- NOTE | 2019-09-03 17:02 | EKG ---
Test Reason : Blood Pressure : / mmHG Vent. Rate : 063 BPM Atrial Rate : 063 BPM P-R Int : 124 ms QRS Dur : 092 ms QT Int : 428 ms P-R-T Axes : 047 056 050 degrees QTc Int : 437 ms NORMAL SINUS RHYTHM NORMAL ECG NO PREVIOUS ECGS AVAILABLE Confirmed by SUAZNNE ZIMMER MD ([id number]) on 09/03/2019 5:02:06 PM Referred By: Confirmed By:SUZANNE ZIMMER MD
== END 2019-09-02 21:22 | disposition home or self-care (01) ==
LOC: JER 15:09
PROC: 3E033NZ Introduction of Analgesics, Hypnotics, Sedatives into Peripheral Vein, Percutaneous Approach (ICD-10-PCS; principal; 2019-09-02)
PROC: BB4BZZZ Ultrasonography of Pleura (ICD-10-PCS; 2019-09-02)
DX: M25.511 Pain in right shoulder (principal); W19.XXXA Unspecified fall, initial encounter; R29.6 Repeated falls; Y93.89 Activity, other specified; Y92.89 Other specified places as the place of occurrence of the external cause; Y99.8 Other external cause status; F10.10 Alcohol abuse, uncomplicated; F17.210 Nicotine dependence, cigarettes, uncomplicated; Z86.69 Personal history of other diseases of the nervous system and sense organs
CPT/HCPCS: 36415; 70450-TC; 71260-TC; 72125-TC; 73030-TC-RT-FY; 73060-TC-RT-FY; 73070-TC-RT-FY; 74176-TC; 76604; 80053; 85025; 85610; 93005; 93010; 96374; 99282-25; J0131; Q9967